=== PATIENT | female | born 1950 | race Caucasian/White ===

== ENCOUNTER 2017-08-20 10:15 | Inpatient (IN) | payer MEDICARE ==
[2017-08-20 10:37] VITALS: BMI 30.7
[2017-08-23] MEDS ORDERED: Tranexamic Acid 1,000 MG/100 ML BAG ONE ×2 (05:54→09:06)
[2017-08-23] MEDS ORDERED: CEFAZOLIN/Water 2 GM/20 ML SYRINGE ONE (05:54)
[2017-08-23] MEDS ORDERED: Vancomycin HCl 1.5 GM in Sodium Chloride 0.9% 250 ML 300 ML IVPB SCH ×2 (06:00→18:00)
[2017-08-23] MEDS ORDERED: Lidocaine 1% (PF) 30 ML VIAL ONE (06:21)
[2017-08-23] MEDS ORDERED: Ropivacaine 0.2% HCl/PF 20 ML ONE (06:21)
[2017-08-23] MEDS ORDERED: Midazolam HCl 2 mg/2 ml Vial ONE ×2 (06:21→07:14)
[2017-08-23] MEDS ORDERED: Fentanyl 100 MCG/2 ML VIAL ONE ×3 (06:21→08:01)
[2017-08-23] MEDS ORDERED: Bupivacaine PF 0.5% 30 ML VIAL ONE (06:35)
[2017-08-23] MEDS ORDERED: Promethazine HCl 25 MG/ML VIAL IM PRN ×3 (07:25→09:07)
[2017-08-23] MEDS ORDERED: Ropivacaine HCl/PF 250 ML in Premix Bag 1 BAG NERVE BLCK SCH (07:25)
[2017-08-23] MEDS ORDERED: Ondansetron HCl/PF 4 MG/2 ML Vial IVP PRN ×3 (07:25→09:07)
[2017-08-23] MEDS ORDERED: traMADol HCl 50 MG TAB PO PRN ×3 (07:25→07:32)
[2017-08-23] MEDS ORDERED: Zolpidem Tartrate 5 MG TAB PO PRN ×2 (07:25→07:32)
[2017-08-23] MEDS ORDERED: HYDROcodone/Acetaminophen 10/325 mg Tablet PO PRN (07:25)
[2017-08-23] MEDS ORDERED: Fentanyl 100 MCG/2 ML VIAL IV PRN (07:26)
[2017-08-23] MEDS ORDERED: Ketorolac Tromethamine 30 MG/ML VIAL ONE (07:28)
[2017-08-23] MEDS ORDERED: Propofol 200 MG/20 ML VIAL ONE (07:28)
[2017-08-23] MEDS ORDERED: Ondansetron HCl/PF 4 MG/2 ML Vial ONE (07:28)
[2017-08-23] MEDS ORDERED: PHENYLEPHRINE-NS 100 MCG/ML 10 ML SYRINGE ONE (07:28)
[2017-08-23] MEDS ORDERED: Lidocaine 2% PF 10 ML AMP (For Epidural Use) ONE (07:28)
[2017-08-23] MEDS ORDERED: Acetaminophen 325 MG TAB PO PRN (07:32)
[2017-08-23] MEDS ORDERED: diphenhydrAMINE 25 MG CAP PO PRN (07:32)
[2017-08-23] MEDS ORDERED: Tranexamic Acid 1,000 MG in Sodium Chloride 0.9% 100 ML IVPB SCH (07:45)
[2017-08-23 08:46] LABS: Bilirubin Negative (Negative); Blood, Urine Negative (Negative); Glucose, Urine (Dipstick) Negative (Negative); Ketone, Urine Negative (Negative); Nitrite Negative (Negative); Protein, Urine (Dipstick) Trace mg/dL (Neg-Trace)
[2017-08-23 08:48] LABS: Bacteria/HPF None Seen HPF (None Seen)
[2017-08-23] MEDS ORDERED: Non-Formulary Item 1 EACH (Brimonidine Tartrate [Alphagan P 0.1% Ophth Soln] 1 DROP) EA EYE SCH (09:00)
[2017-08-23] MEDS ORDERED: Senokot S 8.6-50 MG TAB PO SCH (09:00)
[2017-08-23 09:05] LABS: Hyaline Casts/LPF 0-3 HYALINE CAST LPF (0-3 Hyaline); RBC/HPF 0-3 HPF (0-3); Renal Epithelial 0-3 HPF (0-3); Transitional Epithelial 0-3 HPF (0-3)
[2017-08-23] MEDS ORDERED: Promethazine HCl 25 MG/ML VIAL SLOW IVP PRN (09:07)
--- NOTE | 2017-08-23 11:00 | OP ---
DATE OF PROCEDURE: 08/23/2017 PREOPERATIVE DIAGNOSIS: Right knee osteoarthritis. POSTOPERATIVE DIAGNOSIS: Right knee osteoarthritis. PROCEDURE PERFORMED: Right total knee replacement using Magic Wheels pinless navigation. SURGEON: Hilario Shultz M.D. ENVIRONMENTAL SAMPLER: Kurt Salazar PA-C. BLOOD LOSS: Minimal. COMPLICATIONS: None. ANESTHESIA: The patient had general anesthetic. She also had preoperative block performed. IMPLANTS: To the right knee is a Tiffany Triathlon total knee system. The femur is a size 4 crucia te retaining femur. We used a size 3 universal tibial baseplate. We used a 3 x 9 mm CSX3 tibial be aring and an asymmetric 29 x 9 X3 patella. DISPOSITION: She did go to the recovery room in stable condition. INDICATIONS: A 67-year-old female who has been going for years of nonoperative treatment including injections and at this time she is presenting for knee replacement. PROCEDURE IN DETAIL: After all appropriate consent forms were explained and signed, the patient was taken back to the Operating Room and at this time was given general anesthetic. Once the level of anesthesia was appropriate, a well-padded tourniquet was placed on the right leg and the leg was the n prepped and draped in standard surgical fashion. The limb was exsanguinated and tourniquet taken up to 300 mmHg. Midline incision was made with a 10 blade down through the skin and subcutaneous ti ssue. Bovie electrocautery was used to coagulate any brisk venous bleeding. A new blade was used t o make a medial parapatellar arthrotomy. Small subperiosteal release was performed medially and exc ess fat pad was removed. The knee was flexed up to gain access to the femur. The femur was navigat ed and distal femoral resection was made. Epicondylar access was used to align our sizing jig and t his was pinned in place. We sized our femur to be a 4, 4:1 cutting block was applied and pinned. A nterior and posterior chamfer cuts were then made. We navigated out our proximal tibia and made our proximal tibial resection. Spreaders were used to remove any posterior osteophytes off the back of the femur as well as remaining meniscal tissue. A long alignment tee was then used to achieve jonny ect rotation of our tibial baseplate and a size 3 was chosen. This was pinned in place. We trialed the polyethylene and a CSX3 polyethylene gave us full extension and good stability throughout range of motion. Two towel clips and a saw were used to cut our patella. Three lug nuts were drilled an d asymmetric 29 x 9 X3 patella was trialed which sat nicely in the trochlear groove. We then drille d our femur and punched our tibia. All components were removed. The knee was thoroughly irrigated and dried. Cement was mixed into the cement gun on the back table. Components were then placed. T he knee was held out in full extension until the cement had dried. All excess bone cement was remov ed. Multiple #2 Vicryl stitches as well as a Quill was used to close our extensor mechanism. 0 Andrew ll followed by a running Monoderm was then used to close the skin. Surgicel glue was then used on t he skin. Once this had dried, soft tissue dressing was applied to the limb, tourniquet was let down , and the toes pinked up nicely. The patient was then awakened and taken to the Recovery Room in st able condition. All counts were correct at the end of the case. The patient did receive preoperati ve IV antibiotics. The patient was injected with Exparel for postoperative pain relief.
[2017-08-23] MEDS: Aspirin 325 MG TAB PO SCH ×2 (11:08→21:25)
[2017-08-23] MEDS: Sodium Chloride 0.9% 1,000 ML IV SCH ×2 (11:08→21:26)
[2017-08-23] MEDS: Brimonidine Tartrate 0.2% Ophth Soln 5 ml Bottle EA EYE SCH ×2 (11:08→21:25)
[2017-08-23] MEDS: Ferrous Gluconate 324 MG TAB PO SCH ×2 (11:09→21:25)
[2017-08-23] MEDS: Multivitamin W/ Minerals 1 TAB PO SCH (11:09)
[2017-08-23] MEDS: Timolol 0.5% Ophth Soln 5 ml Bottle EA EYE SCH (11:09)
--- NOTE | 2017-08-23 13:49 | PDOC.PN ---
- Subjective Encounter Start Date: 08/23/17 Encounter Start Time: 13:49 Patient seen and examined. Consult for med mngt. Denies any CP/SOB. pain controlled. - Objective MAR Reviewed: Yes Vital Signs & Weight: Vital Signs (12 hours) Temp Pulse Resp BP Pulse Ox 08/23/17 12:00 96 08/23/17 11:09 68 08/23/17 10:54 97.2 F L 68 20 145/75 H 95 Weight Weight 220 lb Result Diagrams: 08/24/17 04:53 EKG Reviewed by me: Yes (SR) Phys Exam - Physical Examination Constitutional: NAD Respiratory: no wheezing, no rhonchi Cardiovascular: RRR, no rub Gastrointestinal: soft, non-tender, positive bowel sounds Musculoskeletal: no edema Neurological: non-focal, moves all 4 limbs Dx/Plan (1) Hypertension Code(s): I10 - ESSENTIAL (PRIMARY) HYPERTENSION Status: Chronic (2) Anxiety and depression Code(s): F41.9 - ANXIETY DISORDER, UNSPECIFIED; F32.9 - MAJOR DEPRESSIVE DISORDER, SINGLE EPISODE, UNSPECIFIED Status: Chronic (3) CKD (chronic kidney disease) stage 2, GFR 60-89 ml/min Code(s): N18.2 - CHRONIC KIDNEY DISEASE, STAGE 2 (MILD) Status: Chronic (4) GERD (gastroesophageal reflux disease) Code(s): K21.9 - GASTRO-ESOPHAGEAL REFLUX DISEASE WITHOUT ESOPHAGITIS Status: Chronic (5) Glaucoma Code(s): H40.9 - UNSPECIFIED GLAUCOMA Status: Chronic (6) Obesity (BMI 30.0-34.9) Code(s): E66.9 - OBESITY, UNSPECIFIED Status: Chronic - Plan cont current plan of care, DVT proph w/SCDs (per [facility] protocol) * Cont Losartan - hold if SBP < 130 * Cont other meds as below * Cont PT/OT * Will follow. Thank you for this consultation. Review of Systems - Review of Systems Respiratory: negative: Cough, Dry, Shortness of Breath, Hemoptysis, SOB with Excertion, Pleuritic Pain, Sputum, Wheezing Cardiovascular: negative: Chest Pain, Palpitations, Orthopnea, Paroxysmal Noc. Dyspnea, Edema, Light Headedness, Other Gastrointestinal: negative: Nausea, Vomiting, Abdominal Pain, Diarrhea, Constipation, Melena, Hematochezia, Other - Medications/Allergies Allergies/Adverse Reactions: Allergies Allergy/AdvReac Type Severity Reaction Status Date / Time No Known Allergies Allergy Unverified 08/20/17 10:34 Medications: Current Medications Acetaminophen (Tylenol) 650 mg PO Q4H PRN PRN Reason: CASEY/ T > 101F; Mild Pain (1-3) Hydrocodone Bitart/Acetaminophen ([place] 10/325) 1 tab PO Q4H PRN PRN Reason: Pain (1-3) Hydrocodone Bitart/Acetaminophen ([place] 10/325) 2 tab PO Q4H PRN PRN Reason: PAIN (4-6) Aspirin (Aspirin) 325 mg PO BID [facility] Last Admin: 08/23/17 11:08 Dose: Not Given Atorvastatin Calcium (Lipitor) 20 mg PO HS [facility] Brimonidine Tartrate (Alphagan 0.2% Ophth Soln) 1 drop EA EYE BID [facility] Last Admin: 08/23/17 11:08 Dose: Not Given Cefazolin Sodium (Ancef) 2 gm SLOW IVP Q8HR [facility] Stop: 08/23/17 22:01 Diphenhydramine HCl (Benadryl) 25 mg PO Q6H PRN PRN Reason: Itching Fentanyl (Sublimaze) 50 mcg IV Q1H PRN PRN Reason: BREAKTHRU PAIN Ferrous Gluconate (Fergon) 324 mg PO BID [facility] Last Admin: 08/23/17 11:09 Dose: Not Given Ropivacaine 250 ml/ Device 250 mls @ 10 mls/hr NERVE BLCK INF [facility] Sodium Chloride (Normal Saline 0.9%) 1,000 mls @ 100 mls/hr IV .Q10H [facility] Last Admin: 08/23/17 11:08 Dose: Not Given Tranexamic Acid 1,000 mg/ (Sodium Chloride) 110 mls @ 200 mls/hr IVPB ONE [facility] Stop: 08/23/17 14:00 Vancomycin HCl 1.5 gm/ Sodium (Chloride) 300 mls @ 200 mls/hr IVPB 1800 [facility] Stop: 08/23/17 19:29 Iron/Minerals/Multivitamins (Theragran M) 1 tab PO DAILY [facility] Last Admin: 08/23/17 11:09 Dose: Not Given Ketorolac Tromethamine (Toradol) 15 mg IVP 0300,0900,1500,2100 [facility] Stop: 08/25/17 09:01 Latanoprost (Xalatan 0.005% Ophth Soln) 1 drop EA EYE HS [facility] Losartan Potassium (Cozaar) 50 mg PO HS [facility] Montelukast Sodium (Singulair) 10 mg PO HS [facility] Ondansetron HCl (Zofran) 4 mg IVP Q6H PRN PRN Reason: Nausea/Vomiting Pantoprazole Sodium (Protonix) 40 mg PO DAILY [facility] Last Admin: 08/23/17 11:09 Dose: Not Given Promethazine HCl (Phenergan) 12.5 mg IM Q4H PRN PRN Reason: Nausea/Vomiting Senna/Docusate Sodium (Senokot S) 2 tab PO BID [facility] Last Admin: 08/23/17 11:09 Dose: Not Given Sertraline HCl (Zoloft) 50 mg PO HS [facility] Sodium Chloride (Flush - Normal Saline) 10 ml IVF PRN PRN PRN Reason: Saline Flush Timolol Maleate (Timoptic 0.5% Oph Soln) 1 drop EA EYE DAILY [facility] Last Admin: 08/23/17 11:09 Dose: Not Given Tramadol HCl (Ultram) 100 mg PO Q6H PRN PRN Reason: Mild Pain (1-3) Zolpidem Tartrate (Ambien) 5 mg PO HSPRN PRN PRN Reason: Insomnia
[2017-08-23] MEDS ORDERED: Polyethylene Glycol 3350 17 GM Packet PO PRN (13:51)
[2017-08-23] MEDS ORDERED: Ropivacaine 0.5% HCl/PF (150 MG/30 ML VIAL) ONE (14:13)
[2017-08-23] MEDS: CEFAZOLIN/Water 2 GM/20 ML SYRINGE SLOW IVP SCH ×2 (14:37→21:32)
[2017-08-23] MEDS: Ketorolac Tromethamine 30 MG/ML VIAL IVP SCH ×2 (14:37→21:27)
[2017-08-23] MEDS ORDERED: Losartan Potassium 25 MG TAB PO SCH (21:00)
[2017-08-23] MEDS: Latanoprost 0.005% Ophth Soln 2.5 ml Bottle EA EYE SCH (21:24)
[2017-08-23] MEDS: Atorvastatin Calcium 20 MG TAB PO SCH (21:25)
[2017-08-23] MEDS: Montelukast Sodium 10 mg Tablet PO SCH (21:26)
[2017-08-23] MEDS: Losartan Potassium 25 MG TAB PO SCH (21:26)
[2017-08-24] MEDS: Ketorolac Tromethamine 30 MG/ML VIAL IVP SCH ×4 (02:24→20:51)
[2017-08-24] MEDS: HYDROcodone/Acetaminophen 10/325 mg Tablet PO PRN (02:25)
[2017-08-24] MEDS: Sodium Chloride 0.9% 1,000 ML IV SCH ×3 (04:05→21:54)
[2017-08-24 05:39] LABS: Hematocrit 33.6 % (36.0-47.0); Mean Platelet Volume 7.9 fL (7.4-10.4); Red Blood Cell (RBC) Count 3.76 mill/uL (4.20-5.40); White Blood Cell (WBC) Count 11.8 thou/uL (4.8-10.8)
[2017-08-24] MEDS: Multivitamin W/ Minerals 1 TAB PO SCH (07:34)
[2017-08-24] MEDS: Aspirin 325 MG TAB PO SCH ×2 (07:34→20:49)
[2017-08-24] MEDS: Ferrous Gluconate 324 MG TAB PO SCH ×2 (07:35→20:49)
[2017-08-24] MEDS: Timolol 0.5% Ophth Soln 5 ml Bottle EA EYE SCH (08:15)
[2017-08-24] MEDS: Brimonidine Tartrate 0.2% Ophth Soln 5 ml Bottle EA EYE SCH ×2 (08:15→20:50)
--- NOTE | 2017-08-24 11:23 | PDOC.PN ---
- Subjective Encounter Start Date: 08/24/17 Encounter Start Time: 08:00 Patient seen and examined. No new complaints. No overnight events - Objective MAR Reviewed: Yes Vital Signs & Weight: Vital Signs (12 hours) Temp Pulse Resp BP Pulse Ox 08/24/17 08:42 98.0 F 74 14 102/65 93 L 08/24/17 08:15 68 08/24/17 07:34 98.4 F 68 16 08/24/17 00:11 68 18 97/68 Weight Weight 220 lb I&O: 08/23/17 08/24/17 08/25/17 06:59 06:59 06:59 Intake Total 2889 Output Total 1550 Balance 1339 Result Diagrams: 08/24/17 04:53 Phys Exam - Physical Examination Constitutional: NAD HEENT: PERRLA, moist MMs, sclera anicteric Neck: no JVD, supple Respiratory: no wheezing, no rales, no rhonchi Cardiovascular: RRR, no significant murmur, no rub Gastrointestinal: soft, non-tender, no distention, positive bowel sounds Musculoskeletal: no edema, pulses present right knee with dressing Neurological: non-focal, normal sensation, moves all 4 limbs Psychiatric: normal affect, A&O x 3 Skin: no rash, normal turgor Dx/Plan (1) Postoperative anemia due to acute blood loss Code(s): D62 - ACUTE POSTHEMORRHAGIC ANEMIA Status: Acute (2) Status post total right knee replacement Code(s): Z96.651 - PRESENCE OF RIGHT ARTIFICIAL KNEE JOINT Status: Acute (3) Anxiety and depression Code(s): F41.9 - ANXIETY DISORDER, UNSPECIFIED; F32.9 - MAJOR DEPRESSIVE DISORDER, SINGLE EPISODE, UNSPECIFIED Status: Chronic (4) CKD (chronic kidney disease) stage 2, GFR 60-89 ml/min Code(s): N18.2 - CHRONIC KIDNEY DISEASE, STAGE 2 (MILD) Status: Chronic (5) GERD (gastroesophageal reflux disease) Code(s): K21.9 - GASTRO-ESOPHAGEAL REFLUX DISEASE WITHOUT ESOPHAGITIS Status: Chronic (6) Glaucoma Code(s): H40.9 - UNSPECIFIED GLAUCOMA Status: Chronic (7) Hypertension Code(s): I10 - ESSENTIAL (PRIMARY) HYPERTENSION Status: Chronic (8) Obesity (BMI 30.0-34.9) Code(s): E66.9 - OBESITY, UNSPECIFIED Status: Chronic - Plan cont current plan of care, PT/OT * continue aspirin for DVT prophylaxis * continue protonix for GI prophylaxis * continue iron * nerve block as per anesthesia * pain controlled with current pain meds * home medication reconciled * medication reviewed as below * symptomatic treatment * PT/OT as per [facility] protocol * code status- Full code.. Review of Systems - Review of Systems ENT: negative: Ear Pain, Ear Discharge, Nose Pain, Nose Discharge, Nose Congestion, Mouth Pain, Mouth Swelling, Throat Pain, Throat Swelling, Other Respiratory: negative: Cough, Dry, Shortness of Breath, Hemoptysis, SOB with Excertion, Pleuritic Pain, Sputum, Wheezing Cardiovascular: negative: Chest Pain, Palpitations, Orthopnea, Paroxysmal Noc. Dyspnea, Edema, Light Headedness, Other Gastrointestinal: negative: Nausea, Vomiting, Abdominal Pain, Diarrhea, Constipation, Melena, Hematochezia, Other Genitourinary: negative: Dysuria, Frequency, Incontinence, Hematuria, Retention , Other Musculoskeletal: negative: Neck Pain, Shoulder Pain, Arm Pain, Back Pain, Hand Pain, Leg Pain, Foot Pain, Other Skin: negative: Rash, Lesions, Rigo, Bruising, Other - Medications/Allergies Allergies/Adverse Reactions: Allergies Allergy/AdvReac Type Severity Reaction Status Date / Time No Known Allergies Allergy Unverified 08/20/17 10:34 Medications: Current Medications Acetaminophen (Tylenol) 650 mg PO Q4H PRN PRN Reason: CAESY/ T > 101F; Mild Pain (1-3) Hydrocodone Bitart/Acetaminophen ([place] 10/325) 1 tab PO Q4H PRN PRN Reason: Pain (1-3) Last Admin: 08/24/17 02:25 Dose: 1 tab Hydrocodone Bitart/Acetaminophen ([place] 10/325) 2 tab PO Q4H PRN PRN Reason: PAIN (4-6) Aspirin (Aspirin) 325 mg PO BID [facility] Last Admin: 08/24/17 07:34 Dose: 325 mg Atorvastatin Calcium (Lipitor) 20 mg PO HS [facility] Last Admin: 08/23/17 21:25 Dose: 20 mg Brimonidine Tartrate (Alphagan 0.2% Ophth Soln) 1 drop EA EYE BID [facility] Last Admin: 08/24/17 08:15 Dose: Not Given Diphenhydramine HCl (Benadryl) 25 mg PO Q6H PRN PRN Reason: Itching Fentanyl (Sublimaze) 50 mcg IV Q1H PRN PRN Reason: BREAKTHRU PAIN Ferrous Gluconate (Fergon) 324 mg PO BID [facility] Last Admin: 08/24/17 07:35 Dose: 324 mg Ropivacaine 250 ml/ Device 250 mls @ 10 mls/hr NERVE BLCK INF [facility] Last Admin: 08/24/17 10:53 Dose: 250 mls Sodium Chloride (Normal Saline 0.9%) 1,000 mls @ 100 mls/hr IV .Q10H [facility] Last Admin: 08/24/17 04:05 Dose: Not Given Iron/Minerals/Multivitamins (Theragran M) 1 tab PO DAILY [facility] Last Admin: 08/24/17 07:34 Dose: 1 tab Ketorolac Tromethamine (Toradol) 15 mg IVP 0300,0900,1500,2100 [facility] Stop: 08/25/17 09:01 Last Admin: 08/24/17 07:34 Dose: 15 mg Latanoprost (Xalatan 0.005% Ophth Soln) 1 drop EA EYE HS [facility] Last Admin: 08/23/17 21:24 Dose: Not Given Losartan Potassium (Cozaar) 50 mg PO HS [facility] Last Admin: 08/23/17 21:26 Dose: 50 mg Montelukast Sodium (Singulair) 10 mg PO HS [facility] Last Admin: 08/23/17 21:26 Dose: 10 mg Ondansetron HCl (Zofran) 4 mg IVP Q6H PRN PRN Reason: Nausea/Vomiting Pantoprazole Sodium (Protonix) 40 mg PO DAILY [facility] Last Admin: 08/24/17 07:35 Dose: 40 mg Polyethylene Glycol (Miralax) 17 gm PO DAILY PRN PRN Reason: Constipation Promethazine HCl (Phenergan) 12.5 mg IM Q4H PRN PRN Reason: Nausea/Vomiting Sertraline HCl (Zoloft) 50 mg PO HS [facility] Last Admin: 08/23/17 21:26 Dose: 50 mg Sodium Chloride (Flush - Normal Saline) 10 ml IVF PRN PRN PRN Reason: Saline Flush Timolol Maleate (Timoptic 0.5% Ophth Soln) 1 drop EA EYE DAILY [facility] Last Admin: 08/24/17 08:15 Dose: Not Given Tramadol HCl (Ultram) 100 mg PO Q6H PRN PRN Reason: Mild Pain (1-3) Zolpidem Tartrate (Ambien) 5 mg PO HSPRN PRN PRN Reason: Insomnia
[2017-08-24] MEDS: Montelukast Sodium 10 mg Tablet PO SCH (20:49)
[2017-08-24] MEDS: Atorvastatin Calcium 20 MG TAB PO SCH (20:49)
[2017-08-24] MEDS: Latanoprost 0.005% Ophth Soln 2.5 ml Bottle EA EYE SCH (20:50)
[2017-08-25] MEDS: Losartan Potassium 25 MG TAB PO SCH (00:47)
[2017-08-25] MEDS: Ketorolac Tromethamine 30 MG/ML VIAL IVP SCH ×2 (04:08→08:23)
[2017-08-25 05:20] LABS: Hematocrit 33.4 % (36.0-47.0); Mean Platelet Volume 7.9 fL (7.4-10.4); Red Blood Cell (RBC) Count 3.73 mill/uL (4.20-5.40); White Blood Cell (WBC) Count 12.8 thou/uL (4.8-10.8)
[2017-08-25] MEDS: HYDROcodone/Acetaminophen 10/325 mg Tablet PO PRN ×2 (06:08→14:15)
--- NOTE | 2017-08-25 07:36 | PDOC.PN ---
- Subjective Encounter Start Date: 08/25/17 Encounter Start Time: 07:35 Patient seen and examined. No new complaints. No overnight events - Objective Resuscitation Status: Resuscitation Status FULL:Full Resuscitation MAR Reviewed: Yes Vital Signs & Weight: Vital Signs (12 hours) Temp Pulse Resp BP Pulse Ox 08/24/17 20:54 98.2 F 92 16 08/24/17 20:47 98.2 F 92 16 99/56 L 90 L Weight Admit Weight 220 lb Weight 220 lb I&O: 08/24/17 08/25/17 08/26/17 06:59 06:59 06:59 Intake Total 2889 1080 Output Total 1550 2300 Balance 1339 -1220 Result Diagrams: 08/25/17 04:42 Phys Exam - Physical Examination Constitutional: NAD HEENT: PERRLA, moist MMs, sclera anicteric Neck: no JVD, supple Respiratory: no wheezing, no rales, no rhonchi Cardiovascular: RRR, no significant murmur, no rub Gastrointestinal: soft, non-tender, no distention, positive bowel sounds Musculoskeletal: no edema, pulses present right knee with dressing Neurological: non-focal, normal sensation Psychiatric: normal affect, A&O x 3 Skin: no rash, normal turgor Dx/Plan (1) Postoperative anemia due to acute blood loss Code(s): D62 - ACUTE POSTHEMORRHAGIC ANEMIA Status: Acute (2) Status post total right knee replacement Code(s): Z96.651 - PRESENCE OF RIGHT ARTIFICIAL KNEE JOINT Status: Acute (3) Anxiety and depression Code(s): F41.9 - ANXIETY DISORDER, UNSPECIFIED; F32.9 - MAJOR DEPRESSIVE DISORDER, SINGLE EPISODE, UNSPECIFIED Status: Chronic (4) CKD (chronic kidney disease) stage 2, GFR 60-89 ml/min Code(s): N18.2 - CHRONIC KIDNEY DISEASE, STAGE 2 (MILD) Status: Chronic (5) GERD (gastroesophageal reflux disease) Code(s): K21.9 - GASTRO-ESOPHAGEAL REFLUX DISEASE WITHOUT ESOPHAGITIS Status: Chronic (6) Glaucoma Code(s): H40.9 - UNSPECIFIED GLAUCOMA Status: Chronic (7) Hypertension Code(s): I10 - ESSENTIAL (PRIMARY) HYPERTENSION Status: Chronic (8) Obesity (BMI 30.0-34.9) Code(s): E66.9 - OBESITY, UNSPECIFIED Status: Chronic - Plan cont current plan of care, PT/OT * continue aspirin for DVT prophylaxis * continue protonix for GI prophylaxis * continue iron * nerve block as per anesthesia * pain controlled with current pain meds * medication reviewed as below * symptomatic treatment * PT/OT as per [facility] protocol * code status- Full code.. * possible discharge later today. Review of Systems - Review of Systems ENT: negative: Ear Pain, Ear Discharge, Nose Pain, Nose Discharge, Nose Congestion, Mouth Pain, Mouth Swelling, Throat Pain, Throat Swelling, Other Respiratory: negative: Cough, Dry, Shortness of Breath, Hemoptysis, SOB with Excertion, Pleuritic Pain, Sputum, Wheezing Cardiovascular: negative: Chest Pain, Palpitations, Orthopnea, Paroxysmal Noc. Dyspnea, Edema, Light Headedness, Other Gastrointestinal: negative: Nausea, Vomiting, Abdominal Pain, Diarrhea, Constipation, Melena, Hematochezia, Other Genitourinary: negative: Dysuria, Frequency, Incontinence, Hematuria, Retention , Other Musculoskeletal: negative: Neck Pain, Shoulder Pain, Arm Pain, Back Pain, Hand Pain, Leg Pain, Foot Pain, Other - Medications/Allergies Allergies/Adverse Reactions: Allergies Allergy/AdvReac Type Severity Reaction Status Date / Time No Known Allergies Allergy Unverified 08/20/17 10:34 Medications: Current Medications Acetaminophen (Tylenol) 650 mg PO Q4H PRN PRN Reason: CASEY/ T > 101F; Mild Pain (1-3) Hydrocodone Bitart/Acetaminophen ([place] 10/325) 1 tab PO Q4H PRN PRN Reason: Pain (1-3) Last Admin: 08/25/17 06:08 Dose: 1 tab Hydrocodone Bitart/Acetaminophen ([place] 10/325) 2 tab PO Q4H PRN PRN Reason: PAIN (4-6) Last Admin: 08/24/17 13:54 Dose: 2 tab Aspirin (Aspirin) 325 mg PO BID [facility] Last Admin: 08/24/17 20:49 Dose: 325 mg Atorvastatin Calcium (Lipitor) 20 mg PO HS [facility] Last Admin: 08/24/17 20:49 Dose: 20 mg Brimonidine Tartrate (Alph[place] 0.2% Ophth Soln) 1 drop EA EYE BID [facility] Last Admin: 08/24/17 20:50 Dose: Not Given Diphenhydramine HCl (Benadryl) 25 mg PO Q6H PRN PRN Reason: Itching Fentanyl (Sublimaze) 50 mcg IV Q1H PRN PRN Reason: BREAKTHRU PAIN Ferrous Gluconate (Fergon) 324 mg PO BID [facility] Last Admin: 08/24/17 20:49 Dose: 324 mg Ropivacaine 250 ml/ Device 250 mls @ 10 mls/hr NERVE BLCK INF [facility] Last Admin: 08/24/17 10:53 Dose: 250 mls Sodium Chloride (Normal Saline 0.9%) 1,000 mls @ 100 mls/hr IV .Q10H [facility] Last Admin: 08/24/17 21:54 Dose: Not Given Iron/Minerals/Multivitamins (Theragran M) 1 tab PO DAILY [facility] Last Admin: 08/24/17 07:34 Dose: 1 tab Ketorolac Tromethamine (Toradol) 15 mg IVP 0300,0900,1500,2100 [facility] Stop: 08/25/17 09:01 Last Admin: 08/25/17 04:08 Dose: Not Given Latanoprost (Xalatan 0.005% Ophth Soln) 1 drop EA EYE [facility] Last Admin: 08/24/17 20:50 Dose: Not Given Losartan Potassium (Cozaar) 50 mg PO HS [facility] Last Admin: 08/25/17 00:47 Dose: Not Given Montelukast Sodium (Singulair) 10 mg PO HS [facility] Last Admin: 08/24/17 20:49 Dose: 10 mg Ondansetron HCl (Zofran) 4 mg IVP Q6H PRN PRN Reason: Nausea/Vomiting Pantoprazole Sodium (Protonix) 40 mg PO DAILY [facility] Last Admin: 08/24/17 07:35 Dose: 40 mg Polyethylene Glycol (Miralax) 17 gm PO DAILY PRN PRN Reason: Constipation Promethazine HCl (Phenergan) 12.5 mg IM Q4H PRN PRN Reason: Nausea/Vomiting Sertraline HCl (Zoloft) 50 mg PO HS [facility] Last Admin: 08/24/17 20:49 Dose: 50 mg Sodium Chloride (Flush - Normal Saline) 10 ml IVF PRN PRN PRN Reason: Saline Flush Timolol Maleate (Timoptic 0.5% Ophth Soln) 1 drop EA EYE DAILY [facility] Last Admin: 08/24/17 08:15 Dose: Not Given Tramadol HCl (Ultram) 100 mg PO Q6H PRN PRN Reason: Mild Pain (1-3) Zolpidem Tartrate (Ambien) 5 mg PO HSPRN PRN PRN Reason: Insomnia
[2017-08-25] MEDS: Aspirin 325 MG TAB PO SCH (08:25)
[2017-08-25] MEDS: Multivitamin W/ Minerals 1 TAB PO SCH (08:25)
[2017-08-25] MEDS: Ferrous Gluconate 324 MG TAB PO SCH (08:25)
[2017-08-25] MEDS: Brimonidine Tartrate 0.2% Ophth Soln 5 ml Bottle EA EYE SCH (08:26)
[2017-08-25] MEDS: Timolol 0.5% Ophth Soln 5 ml Bottle EA EYE SCH (08:27)
--- NOTE | 2017-08-25 10:21 | DIS ---
PRIMARY CARE PHYSICIAN: Dr. Stover DATE OF ADMISSION 08/23/2017 DATE OF DISCHARGE: 08/25/2017 DISCHARGE DISPOSITION: Home. PRIMARY DISCHARGE DIAGNOSES: Status post right total knee replacement, postoperative anemia due to acute blood loss.. SECONDARY DISCHARGE DIAGNOSES: Anxiety, depression, chronic kidney disease stage 2, gastroesophageal reflux disease, glaucoma, hypertension, obesity with BMI 30. PRIMARY PROCEDURES/OPERATIONS: Right total knee replacement by Dr. Shultz. RADIOLOGICAL INVESTIGATION: None. SIGNIFICANT LABORATORY: Hemoglobin 10.6. Urinalysis normal. DISCHARGE MEDICATIONS: Aspirin 81 mg p.o. daily, Lipitor 20 mg p.o. at bedtime, Alphagan ophthalmic drops b.i.d., Nexium 20 mg p.o. daily, Xalatan eyedrops at bedtime, losartan 50 mg p.o. at bedtime, S ingulair 10 mg p.o. at bedtime, Zoloft 50 mg p.o. at bedtime, Timolol ophthalmic drops each eye daily . CONTRAINDICATIONS: None. CODE STATUS: FULL CODE. INPATIENT CONSULTANTS: Dr. Shultz was primary while in hospital. [facility] Team was consulted for medical comanagement. TEST RESULTS PENDING ON DISCHARGE: None. ALLERGIES: No known drug allergies. DISCHARGE PLAN: Post hospital, the patient will follow up with Dr. Shultz on 08/31/2017. The patient will make appointment with primary care physician in 1 week. HOSPITAL COURSE: A 67-year-old female with above-mentioned medical problem who was electively admitt ed by Dr. Shultz on 08/23/2017 for right total knee replacement which was done on that day without any complication. Postoperatively at [facility] Team was consulted for medical comanagement. The patient's medical problems remained stable. We continued all her home medication while in hosp ital. She was given aspirin for DVT prophylaxis and iron supplement was also prescribed. She had a mild postoperative blood loss anemia that remained stable. The patient did very well with [facility] protocol treatment. The patient is doing very well. The patient is planned for discharge today. The patient is seen and examined at bedside today. Please see my progress note from today for furthe r details.
[2017-08-25 14:14] VITALS: BP 150/70; TEMP 98.2
[2017-08-25] MEDS: Sodium Chloride 0.9% 1,000 ML IV SCH (15:52)
== END 2017-08-25 14:50 | disposition home or self-care (01) | DRG 470 ==
LOC: SJJU 08-23 05:16
PROVIDERS: ADMIT Orthopaedic Surgery; ATTEND Orthopaedic Surgery
PROC: 0SRC0J9 Replacement of Right Knee Joint with Synthetic Substitute, Cemented, Open Approach (ICD-10-PCS; principal; 2017-08-23)
PROC: 3E0T3BZ Introduction of Anesthetic Agent into Peripheral Nerves and Plexi, Percutaneous Approach (ICD-10-PCS; 2017-08-23)
DX: M17.11 Unilateral primary osteoarthritis, right knee (principal); D62 Acute posthemorrhagic anemia; I12.9 Hypertensive chronic kidney disease with stage 1 through stage 4 chronic kidney disease, or unspecified chronic kidney disease; F41.9 Anxiety disorder, unspecified; F32.9 Major depressive disorder, single episode, unspecified; N18.2 Chronic kidney disease, stage 2 (mild); K21.9 Gastro-esophageal reflux disease without esophagitis; H40.9 Unspecified glaucoma; E66.9 Obesity, unspecified; Z68.30 Body mass index [BMI] 30.0-30.9, adult; Z96.652 Presence of left artificial knee joint
CPT/HCPCS: 36415; 80048; 81001; 85025; 85027; 85610; 86850; 86900; 86901; 87081; 87086; 93005; 93010; C1713; C1776; G8978-GP-CJ; G8979-GP-CJ; J1885; J2001; J2250; J2405; J2704; J2795; J3010; J3370; J7050; S0020

== ENCOUNTER 2018-01-14 09:35 | Outpatient (CLI) | payer MEDICARE ==
--- NOTE | 2018-01-14 11:24 | MRI ---
MRI LUMBAR SPINE WITHOUT CONTRAST: Date: 01/14/18 HISTORY: Low back pain x8 months. Bilateral lower extremity weakness. COMPARISON: None. TECHNIQUE: MRI lumbar spine is performed without intravenous Gadolinium administration. Multisequential, multipl milly imaging is performed. FINDINGS: Appropriate T1 marrow signal intensity of lumbar vertebra. Lumbar spine vertebral body height is main tained. There is no fracture. 2.7 mm anterolisthesis of L4 upon L5, 4.5 mm of anterolisthesis of L5 u marquise S1. No significant STIR hyperintensity to suggest vertebral body edema or ligamentous injury. The re is mild fluid and edema involving the left and right facet joint at L3-L4. There is a paraspinal s ynovial cyst on the right at L4-L5. Small amount of fluid is present in both interarticular facet joints at L4-L5 and L5-S1. Conus medullaris terminates at the superior aspect of L1. T12-L1: Adequate disc hydration. No significant central canal stenosis. Neural foramina are patent. L1-L2: Adequate disc hydration. Minimal ligamentum flavum thickening and facet hypertrophy. No significant c entral canal stenosis. Foramina patent bilaterally. L2-L3: Mild loss of disc space height. Generalized disc bulge, ligamentum flavum thickening, and facet hyper trophy result in mild central canal stenosis. Mild bilateral foraminal narrowing. L3-L4: Mild loss of disc space height. Generalized disc bulge, ligamentum flavum thickening, and facet hyper trophy result in mild central canal stenosis. There is fluid in both interarticular facet joints. Mil d to moderate bilateral foraminal narrowing. L4-L5: Desiccation with mild loss of disc space height. Generalized disc bulge, ligamentum flavum thickening , and facet hypertrophy are present. There is moderate to severe central canal stenosis, predominantl y due to posterior element hypertrophy. Mild right and left foraminal narrowing. L5-S1: Desiccation with mild loss of disc space height. Generalized disc bulge, ligamentum flavum thickening , and facet hypertrophy result in severe central canal stenosis. There is abnormal and increased sign al intensity in the left and right subarticular zones, predominantly disc material. There is partial obscuration of the traversing right S1 nerve root and near complete obscuration of the traversing lef t S1 nerve root. Mild to moderate bilateral foraminal narrowing. IMPRESSION: Degenerative changes of lumbar spine as above. The greatest degree of central canal stenosis is at L5 -S1. There appears to be disc material in both subarticular zones, left greater than right. There is partial obscuration of traversing right S1 nerve root. Near complete obscuration of traversing left S 1 nerve root. POS: VANI
== END 2018-01-14 09:36 | disposition home or self-care (01) ==
LOC: TBSIIMAG 09:35
PROVIDERS: ATTEND Orthopaedic Surgery
DX: M54.5 Low back pain (principal); M62.81 Muscle weakness (generalized); M47.896 Other spondylosis, lumbar region; M48.07 Spinal stenosis, lumbosacral region
CPT/HCPCS: 72148